=== PATIENT | male | born 1970 | race Caucasian/White ===

== ENCOUNTER 2019-06-19 22:37 | Inpatient (IN) | payer MEDICAID ==
[~2019-06-19] VITALS: Ht 167.6 cm; Wt 89.8 kg
[2019-06-19 23:05] VITALS: BP 124/94
--- NOTE | 2019-06-19 23:07 | NUR ---
to lobby a/w bed ambulatory
--- NOTE | 2019-06-20 00:10 | NUR ---
49/M BIBA. PT C/O SOB X2 DAYS. REPORTS DIZZINESS WITH ACTIVITY. REPORTS MILD COUGH X2 DAYS. REPORTS PAIN/TIGHTENING ON MIDCHEST, NONRADIATING, X2 DAYS. DENIES FEVER, N/V. PT AWAKE AND ALERT, SKIN NORMAL COLOR WARM AND DRY, SPO2 100% ON RA, RR 34 EVEN SHALLOW TACHYPNIC MILDLY LABORED. HR 83, NSR ON MONITOR. BP 123/87. LUNG SOUNDS CLEAR BL, NO CRACKLES. BLE EDEMA NONPITTING. HX CHF (EF 20%), HTN, METH ABUSE (QUIT 1 YEAR AGO) RX DIGOXIN, METOPROLOL, LASIX, SPIRONOLACTONE
--- NOTE | 2019-06-20 00:13 | NUR ---
PT AMBULATED TO BED #9
--- NOTE | 2019-06-20 01:30 | NUR ---
ASSUMED CARE OF PT AT THIS TIME. PT APPEARS TO BE IN NO DISTRESS. PT C/O SOB. PT HAS HX OF CHF. PT HAS FINE CRACKLES. PT GIVEN 2LPM NC TO HELP WITH BREATHING.
[2019-06-20 01:31] LABS: BASOPHILS # (AUTO) 0.1 K/uL (0.00-0.22); BASOPHILS % (AUTO) 0.7 % (0.0-2.0); EOSINOPHILS # (AUTO) 0.5 K/uL (0-0.4); EOSINOPHILS % (AUTO) 5.6 % (0.0-4.0); HEMATOCRIT 47.1 % (36-52); HEMOGLOBIN 15.7 g/dL (12.0-18.0); LYMPHOCYTES # (AUTO) 2.4 K/uL (2.0-11.5); LYMPHOCYTES % (AUTO) 27.3 % (20.5-51.1); MEAN CORPUSCULAR HEMOGLOBIN 31 pg (27-31); MEAN CORPUSCULAR HGB CONC 33 g/dL (33-37); MEAN CORPUSCULAR VOLUME 92.5 fL (80-94); MONOCYTES # (AUTO) 0.4 K/uL (0.8-1.0); MONOCYTES % (AUTO) 5.1 % (1.7-9.3); NEUTROPHILS # (AUTO) 5.3 K/uL (1.8-7.7); NEUTROPHILS % (AUTO) 61.3 % (42.2-75.2); PLATELET COUNT (AUTO) 238 K/uL (140-450); RED BLOOD CELL COUNT(AUTO) 5.09 MIL/uL (4.20-6.10); WHITE BLOOD COUNT (AUTO) 8.7 K/uL (4.8-10.8)
[2019-06-20 01:48] LABS: ANION GAP 15.7 (8-16); CARBON DIOXIDE 24.3 mmol/L (21-32); CREATININE 1.6 mg/dL (0.7-1.3)
[2019-06-20 01:54] LABS: ALBUMIN 3.3 g/dL (3.4-5.0); TOTAL BILIRUBIN 1.1 mg/dL (0.0-1.0)
[2019-06-20] MEDS ORDERED: NITROGLYCERIN 2% 1 GM PKT TP ONE (02:25)
[2019-06-20] MEDS ORDERED: FUROSEMIDE 40 MG/4 ML VIAL IVP ONE (02:25)
[2019-06-20] MEDS ORDERED: HYDROcodone/APAP 7.5/325 MG 1 TAB PO PRN (03:10)
[2019-06-20] MEDS ORDERED: NACL 0.9% 1,000 ML IV ONE (03:10)
[2019-06-20] MEDS ORDERED: ONDANSETRON 4 MG/2 ML VIAL IVP PRN (03:10)
[2019-06-20] MEDS ORDERED: ACETAMINOPHEN 325 MG TAB PO PRN (03:10)
[2019-06-20] MEDS ORDERED: FURO-570 PO (03:29)
[2019-06-20] MEDS ORDERED: SPIR50TA PO (03:29)
[2019-06-20] MEDS ORDERED: METO25TE2 PO (03:29)
[2019-06-20] MEDS ORDERED: DIGO0.122 PO (03:29)
--- NOTE | 2019-06-20 03:30 | NUR ---
PT USING URINAL NO DIFFICULTY. OUTPUT 1600
--- NOTE | 2019-06-20 03:30 | NUR ---
NO CHANGES FROM PREVIOUS ASSESSMENT. VSS. WILL CONTINUE TO MONTIOR.
[2019-06-20 04:01] LABS: PHOSPHORUS 4.3 mg/dL (2.5-4.9)
[2019-06-20 04:02] LABS: THYROID STIMULATING HORMONE 4.53 uIU/mL (0.34-3.74)
[2019-06-20 04:05] VITALS: BP 124/89
--- NOTE | 2019-06-20 04:05 | NUR ---
ADMITTED A 49 MALE FROM ED. PATIENT IS ALERT AND ORIENTED X4. NO APPARENT DISTRESS NOTED. INTRODUCED SELF AND UPDATED BOARD. ORIENTED TO ROOM, ROOMMATE, HOSPITAL ROUTINE AND ENVIRONMENT. DENIES PAIN NOR DISCOMFORT. WITH PIV ON RIGHT AC 20G ON SALINE LOCK. WILL CONTINUE TO MONITOR.
[2019-06-20 04:06] LABS: PROTHROMBIN TIME 10.5 secs (10.8-13.4)
--- NOTE | 2019-06-20 04:06 | NUR ---
Pt report given to BEN W[place] ON MST. PT TAKEN TO ROOM 126A . Transfer of care at this time.
--- NOTE | 2019-06-20 06:00 | NUR ---
PATIENT ASLEEP IN BED. NO APPARENT DISTRESS NOTED. WILL CONTINUE TO MONITOR.
--- NOTE | 2019-06-20 07:19 | NUR ---
ENDORSED TO AM SHIFT NURSE FOR CONTINUITY OF CARE.
--- NOTE | 2019-06-20 07:20 | NUR ---
REPORT RECEIVED FROM INDUSTRIAL WASTE TREATMENT TECHNICIAN NURSE AT BEDSIDE FOR CONTINUITY OF CARE. PATIENT SLEEPING COMFORTABLY, SR ON TELE MONITOR. RESPIRATIONS EVEN AND UNLABORED ON ROOM AIR. IV SITE INTACT, ASYMPTOMATIC AND INFUSING IVF WELL. UPDATED BOARD. CALL LIGHT WITHIN REACH, WILL CONTINUE TO MONITOR PATIENT.
[2019-06-20 07:32] VITALS: BP 134/97
--- NOTE | 2019-06-20 08:10 | NUR ---
PATIENT HAS BEEN SCREENED AND CATEGORIZED MODERATE NUTRITION RISK. PATIENT WILL BE SEEN WITHIN 3-5 DAYS OF ADMISSION. 06/22/19 06/24/[address]
[2019-06-20] MEDS: FAMOTIDINE 20 MG TAB PO SCH (08:12)
[2019-06-20] MEDS: DOCUSATE SODIUM 100 MG GELCAP PO SCH ×2 (08:12→20:57)
[2019-06-20] MEDS: SPIRONOLACTONE 25 MG TAB PO SCH (08:12)
--- NOTE | 2019-06-20 08:21 | NUR ---
ORDERED MEDICATIONS GIVEN. PATIENT TOLERATED THEM WELL. PT C/O HEADACHE. PRN TYLENOL GIVEN. PATIENT HAS NO COMPLAINTS AT THIS TIME. PATIENT SITTING UP IN BED EATING BREAKFAST. CALL LIGHT WITHIN REACH, WILL CONTINUE TO MONITOR PATIENT.
[2019-06-20 08:25] LABS: BASOPHILS # (AUTO) 0.1 K/uL (0.00-0.22); BASOPHILS % (AUTO) 0.7 % (0.0-2.0); EOSINOPHILS # (AUTO) 0.4 K/uL (0-0.4); HEMATOCRIT 47.4 % (36-52); HEMOGLOBIN 15.6 g/dL (12.0-18.0); LYMPHOCYTES # (AUTO) 2.1 K/uL (2.0-11.5); LYMPHOCYTES % (AUTO) 26.4 % (20.5-51.1); MEAN CORPUSCULAR HEMOGLOBIN 30 pg (27-31); MEAN CORPUSCULAR HGB CONC 33 g/dL (33-37); MEAN CORPUSCULAR VOLUME 92.4 fL (80-94); MONOCYTES # (AUTO) 0.4 K/uL (0.8-1.0); MONOCYTES % (AUTO) 5.4 % (1.7-9.3); NEUTROPHILS % (AUTO) 62.5 % (42.2-75.2); PLATELET COUNT (AUTO) 243 K/uL (140-450); RED BLOOD CELL COUNT(AUTO) 5.13 MIL/uL (4.20-6.10); RED CELL DISTRIBUTION WIDTH 15.5 % (11.6-13.7)
[2019-06-20 08:26] LABS: ANION GAP 12.4 (8-16); CARBON DIOXIDE 30.5 mmol/L (21-32); CREATININE 1.6 mg/dL (0.7-1.3); POTASSIUM 3.9 mmol/L (3.5-5.1)
--- NOTE | 2019-06-20 08:30 | NUR ---
DR APPIAH IN TO SEE THE PATIENT.
[2019-06-20] MEDS ORDERED: DIGOXIN 0.125 MG TAB PO SCH (09:00)
[2019-06-20] MEDS ORDERED: SPIRONOLACTONE 50 MG TAB PO SCH (09:00)
[2019-06-20] MEDS ORDERED: FUROSEMIDE 40 MG/4 ML VIAL IVP SCH ×2 (09:00→11:30)
[2019-06-20] MEDS: METOPROLOL SUCCINATE 50 MG TABER PO SCH (09:58)
--- NOTE | 2019-06-20 10:00 | NUR ---
BP 129/98 HR 78, ORDERED METOPROLOL GIVEN. PATIENT TOLERATED IT. PATIENT STATES THAT HEADACHE IS BETTER. PATIENT NOW GOING BACK TO SLEEP. NO COMPLAINTS AT THIS TIME. CALL LIGHT WITHIN REACH, WILL CONTINUE TO MONITOR PATIENT.
--- NOTE | 2019-06-20 10:20 | NUR ---
DR PRICE IN TO SEE THE PATIENT. WILL WAIT FOR HIS RECOMMENDATIONS.
--- NOTE | 2019-06-20 10:50 | NUR ---
PATIENT GETTING ECHOCARDIOGRAM. WILL WAIT FOR RESULTS.
[2019-06-20 11:50] LABS: CHOL/HDL RATIO 3.5 (1-4.5)
[2019-06-20 12:01] VITALS: BP 128/78
[2019-06-20 12:57] LABS: APPEARANCE,URINE CLEAR (CLEAR); BILIRUBIN,URINE NEGATIVE (NEGATIVE); BLOOD, URINE NEGATIVE (NEGATIVE); COLOR,URINE YELLOW (YELLOW); LEUKOCYTE ESTERASE ,URINE NEGATIVE (NEGATIVE); NITRITE, URINE NEGATIVE (NEGATIVE); PH,URINE 6.5 (5.0-9.0); UGLUCOSE NEGATIVE (NEGATIVE)
--- NOTE | 2019-06-20 13:20 | NUR ---
PATIENT CURRENTLY SITTING UP IN BED EATING LUNCH. NO COMPLAINTS OR S/S OF DISTRESS NOTED AT THIS TIME. CALL LIGHT WITHIN REACH, WILL CONTINUE TO MONITOR PATIENT.
[2019-06-20 13:33] LABS: BARBITURATE, URINE NEG. ng/ml (NEG <=200); BENZODIAZEPINE, URINE NEG. ng/mL (NEG <=200); CANNABINOID, URINE NEG. ng/mL (NEG <=50); COCAINE, URINE NEG. ng/mL (NEG <=300); OPIATE, URINE NEG. ng/mL (NEG <=2000); PHENCYCLIDINE SCREEN,URINE NEG. ng/mL (NEG <=25)
--- NOTE | 2019-06-20 15:27 | NUR ---
YESICA Assessment/Discharge Plan Basic Screen: Yes Name: [facility] Home Relationship: ex- Pre-Admission Living Arrangements: Other Other: [facility] for [facility] Skilled Nursing Prior ADL Independent Current Home Health Name/Tel: N/A Current DME/02 Name/Tel: N/A Current Hospice Name/Tel: N/A Current Dialysis Name/Tel: N/A Healthcare Decision Maker: Patient Advance Directive No Information Taught: Advance Directive Community Resources Person Taught: Patient Teaching Tools: Community Resources Computer Generated Print Verbal Factors Affecting Learning: None Participation Level: Active Evaluation: Gestures Understanding Verbalizes Understanding Educator: YESICA Morocho Discipline: Case Mgt/Social Svcs Tentative Discharge Plan Summary: Patient is a 49 year old male admitted for CHF exacerbation. I met with patient at bedside. Patient alert and oriented x4. Patient lives at [facility] [address] [facility] and he stated residents can stay there 24 hours, do not have to leave during day. He plans to return to [facility] upon discharge. Patient's pcp is Santos Urena and he does not have any difficulty filling his prescriptions. He denied current alcohol/substance abuse. He admitted hx of meth use. He stated he has had depression for about 3 months. He denied SI and HI. He reported he has been considering going to [facility] for mental health services. He told me it is difficult for him to disclose information about his mental health. He stated he prefers not to provide details about this. I provided him with education on [facility], www.[facility].org for community resources including counseling/mental health services. He does not have any questions/concerns at this time. Sewage Screen Operator and/or Vulcanizer Operator will follow up as needed. Signature: YESICA Morocho Date: Jun 20, 2019
[2019-06-20 16:00] VITALS: BP 118/90
--- NOTE | 2019-06-20 19:14 | NUR ---
REPORT GIVEN TO SPINNER FRAME NURSE AT BEDSIDE FOR CONTINUITY OF CARE. FAMILY AT BEDSIDE, PATIENT STABLE.
--- NOTE | 2019-06-20 19:15 | NUR ---
RECEIVED REPORT FROM AM SHIFT NURSE AT BEDSIDE FOR CONTINUITY OF CARE. PATIENT SLEEPING COMFORTABLY, SR. NO COMPLAINTS OF CHEST PAIN. ON TELE MONITOR. RESPIRATIONS EVEN AND UNLABORED ON ROOM AIR. IV SITE INTACT ON THE LEFT AC G 18 ASYMPTOMATIC, TKO CALL LIGHT WITHIN REACH, WILL CONTINUE TO MONITOR PATIENT.
[2019-06-20 20:00] VITALS: BP 123/86
--- NOTE | 2019-06-20 23:11 | NUR ---
PT COMPLAINED OF CHEST PAIN, 6/A0 GIVEN NORCO ORDERED
[2019-06-21] VITALS: BP 123/87
--- NOTE | 2019-06-21 00:11 | NUR ---
PAIN REASSESSMENT DONE. PT SLEEPING NOW; NO SOB; NOT IN RESPIRATORY DISTRESS, WILL CONTINUE TO MONITOR
--- NOTE | 2019-06-21 02:45 | NUR ---
CHECKED ON PATIENT STILL SLEEPING, WILL CONTINUE TO MONITOR
[2019-06-21 04:00] VITALS: BP 126/88
--- NOTE | 2019-06-21 05:00 | NUR ---
PT WENT TO THE RESTROOM, PT STEADY IN GAIT. PT BEEN EATING AND DRINKING FLUIDS. WITH GOOD OUTPUT WILL CONTINUE TO MONITOR
--- NOTE | 2019-06-21 06:49 | NUR ---
PT AWAKE, ALERT ORIENTED X 4. PT AMBULATORY, PT IN STABLE CONDITION AT THIS TIME; AWAITING ECHO FROM CARDIO DRDavid (VALERY/ALBERT)
--- NOTE | 2019-06-21 07:20 | NUR ---
RECEIVED REPORT FROM HERPETOLOGY TEACHER NURSE. PT IS AWAKE AND ORIENTED. INTRODUCED MYSELF AND UPDATED THE BOARD. PT ON ROOM AIR. NO COMPLAINTS OF CHEST PAIN OR SOB. IV ON R AC 18G SL. SKIN INTACT. ECHO RESULTS PENDING. CARDIO CONSULT TO SEE PT TODAY. WILL CONTINUE TO MONITOR PT.
[2019-06-21 08:00] VITALS: BP 127/96
[2019-06-21] MEDS ORDERED: FURO-570 PO (08:26)
[2019-06-21] MEDS ORDERED: LISI-424 PO (08:26)
[2019-06-21] MEDS ORDERED: LISINOPRIL 5 MG TAB PO SCH (09:00)
[2019-06-21] MEDS ORDERED: FUROSEMIDE 40 MG/4 ML VIAL IVP SCH (09:00)
[2019-06-21 09:12] LABS: BASOPHILS # (AUTO) 0.1 K/uL (0.00-0.22); BASOPHILS % (AUTO) 0.8 % (0.0-2.0); EOSINOPHILS # (AUTO) 0.6 K/uL (0-0.4); EOSINOPHILS % (AUTO) 8.6 % (0.0-4.0); HEMATOCRIT 49.3 % (36-52); HEMOGLOBIN 16.2 g/dL (12.0-18.0); LYMPHOCYTES # (AUTO) 2.4 K/uL (2.0-11.5); LYMPHOCYTES % (AUTO) 33.4 % (20.5-51.1); MEAN CORPUSCULAR HEMOGLOBIN 31 pg (27-31); MEAN CORPUSCULAR HGB CONC 33 g/dL (33-37); MONOCYTES # (AUTO) 0.4 K/uL (0.8-1.0); NEUTROPHILS # (AUTO) 3.7 K/uL (1.8-7.7); NEUTROPHILS % (AUTO) 52.2 % (42.2-75.2); PLATELET COUNT (AUTO) 252 K/uL (140-450); RED CELL DISTRIBUTION WIDTH 15.4 % (11.6-13.7); WHITE BLOOD COUNT (AUTO) 7.1 K/uL (4.8-10.8)
[2019-06-21] MEDS: DOCUSATE SODIUM 100 MG GELCAP PO SCH (09:50)
[2019-06-21] MEDS: SPIRONOLACTONE 25 MG TAB PO SCH (09:50)
[2019-06-21] MEDS: METOPROLOL SUCCINATE 50 MG TABER PO SCH (09:50)
[2019-06-21] MEDS: FAMOTIDINE 20 MG TAB PO SCH (09:50)
--- NOTE | 2019-06-21 10:00 | NUR ---
ADMINISTERED MORNING MEDS. PT TOLERATED WELL. SAW DR HAIDER, DERMATOLOGIST. WILL AWAIT D/C ORDERS. PT NEEDS A TAXI HOME. WILL CALL BIOMETRICIAN FOR A VOUCHER. WILL CONTINUE TO MONITOR PT.
[2019-06-21 11:33] LABS: PHOSPHORUS 4.2 mg/dL (2.5-4.9)
[2019-06-21 11:52] LABS: ANION GAP 14.7 (8-16); CARBON DIOXIDE 25.5 mmol/L (21-32); CREATININE 1.5 mg/dL (0.7-1.3); POTASSIUM 4.2 mmol/L (3.5-5.1)
[2019-06-21 12:00] VITALS: BP 120/83
--- NOTE | 2019-06-21 14:50 | NUR ---
DC INSTRUCTIONS GIVEN TO PT. PT VERBALIZED UNDERSTANDING. RX AT THE PHARMACY READY FOR RABBIT FANCIER. REMOVED IV,CANNULA INTACT. NO BLEEDING NOTED. REMOVED TELE MONITOR. WILL GET DRESSED AND GATHER PERSONAL BELONGINGS. WILL GRAB WHEELCHAIR.
--- NOTE | 2019-06-21 15:05 | NUR ---
WHEELED PT OUT TO THE FRONT OF THE HOSPITAL. PT WILL WALK TO THE BUS STOP AND GET TO THE RETIREMENT. PT IS IN STABLE CONDITION WITH ALL PERSONAL BELONGINGS WITH HIM. D
== END 2019-06-21 15:05 | disposition home or self-care (01) | DRG 194 ==
LOC: MED 22:37 → MTU 06-20 03:12 → MMU 06-20 03:34
PROVIDERS: ADMIT General Practice; ATTEND General Practice
DX: I11.0 Hypertensive heart disease with heart failure (principal); N17.0 Acute kidney failure with tubular necrosis; I50.43 Acute on chronic combined systolic (congestive) and diastolic (congestive) heart failure; E66.9 Obesity, unspecified; E44.1 Mild protein-calorie malnutrition; Z68.32 Body mass index [BMI] 32.0-32.9, adult; Z79.899 Other long term (current) drug therapy; Z87.891 Personal history of nicotine dependence; Z91.14 Patient's other noncompliance with medication regimen; Z71.6 Tobacco abuse counseling; Z71.3 Dietary counseling and surveillance
CPT/HCPCS: 36415; 71045; 80048; 80053; 80162; 80305; 81003; 83036; 83735; 83880; 84100; 84443; 84484; 85025; 85610; 85730; 87081; 93005; 96374; 99285; J1644; J1940; J7030; Q0092